=== PATIENT | female | born 1950 | race Caucasian/White ===

== ENCOUNTER → 2018-09-26 | Outpatient (CLI) | payer MEDICARE, OTHER ==
[~2018-09-26] MED LIST: ADULT LOW DOSE81 MG PO; CIPROFLOXACIN500 M3; FLEXERIL PO; FLUZONE 2045 MCG/011; HYDROCHLOROTHIA25 M1 PO; LEVSIN; MEDROLDOSEPACK PO; NEXIUM40 MG PO; NORCO 5-325 TA1 EACH PO; NORVASC10 MG PO; PNEUMOVAX25 MCG/0.5; SIMVASTATIN40 MG PO; TRIAMTERENE/HCT1 CA1 OR; VICODIN 5-5001 EACH
== END ==
LOC: M.RAD 09:29
DX: Z12.31 Encounter for screening mammogram for malignant neoplasm of breast (principal)

== ENCOUNTER 2019-03-20 12:11 | Emergency (ER) | payer MEDICARE, OTHER ==
[~2019-03-20] VITALS: Ht 165.1 cm; Wt 107.5 kg
[2019-03-20] MEDS ORDERED: PRILOSEC OTC20 MG PO (12:23)
[2019-03-20] MEDS ORDERED: VITAMIN D3400 UNIT PO (12:23)
[2019-03-20] MEDS ORDERED: MAXZIDE-25 MG1 EACH PO (12:23)
[2019-03-20 12:55] LABS: HEMATOCRIT 46.2 % (37.0-47.0); HEMOGLOBIN 15.9 gm/dL (12.0-15.0); MCH 32.2 pg (26.0-34.0); MCHC 34.3 g/dL (28.0-37.0); MCV 93.7 fL (80.0-100.0); MPV 8.3 fl. (7.2-11.1); RBC 4.93 mil/uL (4.20-5.00); RDW-CV 12.8 % (10.5-14.5); WBC 4.6 thou/uL (4.0-11.0)
[2019-03-20 13:07] LABS: CALCIUM 9.4 mg/dL (8.5-10.1); CREATININE 0.9 mg/dL (0.6-1.3); POTASSIUM 3.1 mmol/L (3.5-5.1)
[2019-03-20] MEDS ORDERED: CARAFATE 1 GM TA1 GM PO (17:24)
[2019-03-20 17:29] VITALS: BP 127/80
== END 2019-03-20 17:30 | disposition home or self-care (01) ==
LOC: M.ERS 12:11
PROVIDERS: Personal Emergency Response Attendant
DX: K62.5 Hemorrhage of anus and rectum (principal); I10 Essential (primary) hypertension; E78.00 Pure hypercholesterolemia, unspecified; Z85.038 Personal history of other malignant neoplasm of large intestine